=== PATIENT | female | born 2000 | race Caucasian/White ===

== ENCOUNTER 2021-10-31 14:44 | Emergency (ER) | payer MEDICAID ==
[~2021-10-31] VITALS: Ht 162.6 cm; Wt 79.0 kg
[2021-10-31] MEDS ORDERED: LORAZEPAM 1MG TABLET PO ONE (15:00)
[2021-10-31 15:59] LABS: CHLORIDE 106 mEq/L (98-107)
[2021-10-31 16:00] LABS: BASOPHILS % 0.6 % (0.0-2.0); EOSINOPHILS % 0.5 % (0.0-5.0); HEMATOCRIT. 35.8 % (36.0-48.0); HEMOGLOBIN. 11.8 g/dL (12.0-16.0); LYMPHOCYTES % 24.1 % (20.0-50.0); MEAN CORPUSCULAR HEMOGLOBIN 25.6 pg (28.0-32.0); MEAN CORPUSCULAR VOLUME 77.7 fL (81.0-99.0); MEAN PLATELET VOLUME 7.8 fl (7.4-10.4); MONOCYTES % 8.7 % (2.0-8.0); NEUTROPHILS % 66.1 % (40.0-76.0); PLATELET 348 x1000/uL (130-400); RED BLOOD CELL COUNT 4.61 mill/uL (4.2-5.4); RED CELL DISTRIBUTION WIDTH 16.9 % (11.6-14.6)
[2021-10-31 16:05] LABS: ETHANOL BLOOD < 10 mg/dL
[2021-10-31 16:15] LABS: CLARITY URINE CLOUDY (CLEAR); COLOR URINE YELLOW (YELLOW); KETONES URINE TRACE (NEGATIVE); LEUKOCYTE ESTERASE URINE 2+ (NEGATIVE); NITRITE URINE NEGATIVE (NEGATIVE); OCCULT BLOOD URINE 3+ (NEGATIVE); PH URINE 5.5 (4.5-8.0); PROTEIN URINE TRACE (NEGATIVE); SPECIFIC GRAVITY URINE 1.025 (1.005-1.030)
[2021-10-31 16:40] LABS: *AMPHETAMINES SCREEN URINE NEGATIVE (NEGATIVE); *BENZODIAZEPINES SCREEN URINE NEGATIVE (NEGATIVE); METHADONE URINE SCREEN NEGATIVE (NEGATIVE); OPIATES URINE SCREEN NEGATIVE (NEGATIVE)
[2021-10-31 16:41] LABS: *COCAINE SCREEN URINE NEGATIVE (NEGATIVE); PHENCYCLIDINE URINE SCREEN NEGATIVE (NEGATIVE)
[2021-10-31 16:42] LABS: *BARBITURATES SCREEN URINE NEGATIVE (NEGATIVE)
[2021-10-31] MEDS ORDERED: MAG-55 MT (16:42)
[2021-10-31 16:43] LABS: CANNABINOID URINE SCREEN PRESUMTIVE POSITIVE (NEGATIVE)
[2021-10-31] MEDS ORDERED: MAGNESIUM/ALUMINUM HYDROXIDE/SIMETHICONE 30ML UDC PO ONE (16:45)
[2021-10-31] MEDS ORDERED: NITR-87 MT (17:02)
[2021-10-31 17:47] VITALS: BP 116/70
== END 2021-10-31 17:50 | disposition home or self-care (01) ==
LOC: ER 14:44
DX: F33.9 Major depressive disorder, recurrent, unspecified (principal); R45.851 Suicidal ideations; N30.00 Acute cystitis without hematuria; R11.2 Nausea with vomiting, unspecified; R09.89 Other specified symptoms and signs involving the circulatory and respiratory systems; Z63.6 Dependent relative needing care at home
CPT/HCPCS: 36415; 80053; 80305; 80307; 80320; 80329; 81003; 81025; 85025; 99283; G0480

== ENCOUNTER 2021-11-02 19:35 | Emergency (ER) | payer MEDICAID ==
[~2021-11-02] VITALS: Ht 162.6 cm; Wt 82.0 kg
[~2021-11-02 19:35] MED LIST: MAG-55 MT; NITR-87 MT
[2021-11-02] MEDS ORDERED: ONDANSETRON 4MG ODT PO STA (20:05)
[2021-11-02] MEDS ORDERED: ACETAMINOPHEN 325MG TABLET PO STA (20:05)
[2021-11-02 20:14] VITALS: BP 120/89
[2021-11-02] MEDS ORDERED: LORAZEPAM 1MG TABLET PO ONE (20:30)
[2021-11-02 21:24] LABS: BASOPHILS % 0.5 % (0.0-2.0); EOSINOPHILS % 0.3 % (0.0-5.0); HEMATOCRIT. 35.6 % (36.0-48.0); HEMOGLOBIN. 11.7 g/dL (12.0-16.0); LYMPHOCYTES % 22.4 % (20.0-50.0); MEAN CORPUSCULAR HEMOGLOBIN 25.7 pg (28.0-32.0); MEAN CORPUSCULAR VOLUME 77.9 fL (81.0-99.0); MEAN PLATELET VOLUME 7.6 fl (7.4-10.4); MONOCYTES % 7.7 % (2.0-8.0); NEUTROPHILS % 69.1 % (40.0-76.0); PLATELET 341 x1000/uL (130-400); RED BLOOD CELL COUNT 4.57 mill/uL (4.2-5.4)
[2021-11-02 21:33] LABS: CHLORIDE 111 mEq/L (98-107)
[2021-11-02 21:35] LABS: HCG SCREEN NEGATIVE
[2021-11-02 22:01] LABS: CLARITY URINE CLEAR (CLEAR); COLOR URINE DARK YELLOW (YELLOW); KETONES URINE TRACE (NEGATIVE); LEUKOCYTE ESTERASE URINE TRACE (NEGATIVE); NITRITE URINE NEGATIVE (NEGATIVE); OCCULT BLOOD URINE NEGATIVE (NEGATIVE); PH URINE 5.5 (4.5-8.0); PROTEIN URINE TRACE (NEGATIVE); SPECIFIC GRAVITY URINE 1.033 (1.005-1.030)
[2021-11-02] MEDS ORDERED: METO-293 MT (22:17)
[2021-11-02] MEDS ORDERED: HYDR-3735 MT (22:17)
== END 2021-11-02 23:18 | disposition home or self-care (01) ==
LOC: ER 19:35
DX: F41.0 Panic disorder [episodic paroxysmal anxiety] (principal); R11.2 Nausea with vomiting, unspecified; Z20.822 Contact with and (suspected) exposure to COVID-19; F33.9 Major depressive disorder, recurrent, unspecified
CPT/HCPCS: 36415; 80053; 81003; 81025; 83690; 84703; 85025; 87426; 87804; 99284; Q0162